=== PATIENT | female | born 1955 | race Caucasian/White ===

== ENCOUNTER → 2018-09-21 | Outpatient (CLI) | payer OTHER ==
[2018-09-21 07:40] LABS: POTASSIUM 4.1 mmol/L (3.5-5.1)
== END ==
LOC: M.LAB 04:34
PROVIDERS: Student in an Organized Health Care Education/Training Program
DX: Z01.812 Encounter for preprocedural laboratory examination (principal); E11.9 Type 2 diabetes mellitus without complications

== ENCOUNTER → 2020-08-25 | Outpatient (CLI) | payer OTHER | LOC: M.LAB 15:18 | PROVIDERS: ATTEND Podiatrist Foot Surgery | DX: Z20.828 Contact with and (suspected) exposure to other viral communicable diseases (principal) ==

== ENCOUNTER → 2020-08-28 | Outpatient (CLI) | payer OTHER ==
[2020-08-28 07:23] LABS: POTASSIUM 4.6 mmol/L (3.5-5.1)
== END ==
LOC: M.LAB 05:29
PROVIDERS: ATTEND Anesthesiology
DX: E87.6 Hypokalemia (principal); E11.9 Type 2 diabetes mellitus without complications

== ENCOUNTER → 2021-01-12 | Outpatient (CLI) | payer OTHER ==
[2021-01-12 15:58] LABS: POTASSIUM 4.8 mmol/L (3.5-5.1)
== END ==
LOC: M.LAB 15:16
PROVIDERS: ATTEND Podiatrist Foot Surgery
DX: Z01.812 Encounter for preprocedural laboratory examination (principal); Z20.822 Contact with and (suspected) exposure to COVID-19

== ENCOUNTER 2021-06-05 12:02 | Inpatient (IN) | payer OTHER, MEDICARE ==
[~2021-06-05] VITALS: Ht 167.6 cm; Wt 93.4 kg
--- NOTE | ~2021-06-05 | OP ---
[address] [address] OPERATIVE REPORT Name: CHEYENNE JAMIL Jana Room: [address] IN M.R.#: [id number] Admission: 06/05/21 Attend Phys: Donna Parker Discharge: 06/10/21 Date of : 53 Report #: [id number] THIS REPORT FOR: cc: YASIR JULIAN MD, CHADWICK MD Kuhn, James R. DPM ~ DATE OF SURGERY: 06/07/2021 PREOPERATIVE DIAGNOSES: 1. Cellulitis, left great toe. 2. Retained hardware. 3. Diabetic ulceration, left great toe. POSTOPERATIVE DIAGNOSES: 1. Cellulitis, left great toe. 2. Retained hardware. 3. Diabetic ulceration, left great toe. PROCEDURES: 1. Removal of hardware, left great toe. 2. Bone biopsy, left great toe. HEMOSTASIS: Ankle tourniquet. DESCRIPTION OF PROCEDURE: The patient was placed on the operating table in supine position. Pneumatic ankle tourniquet was placed around the left ankle. Anesthesia was obtained 1% lidocaine plain and 0.5% Marcaine plain 50:50 mixture around base of the first metatarsal, left foot. Left foot and ankle were prepped and draped in usual sterile manner. Limb was exsanguinated and pneumatic ankle tourniquet was inflated to 250 mmHg. Limb was table. Attention was directed to the left great toe where a linear incision was placed at tip of the left great toe, this was deepened to same plane using blunt and sharp dissection all bleeders were clamped and cauterized as necessary. A Trilliant screwdriver was then used to remove the screw in toto. The wound was copiously lavaged with sterile saline solution. A rongeur was then used to obtain bone, sent for pathology to help confirm osteomyelitis. The wound was then copiously lavaged with sterile saline again. Deep structures were reapproximated with use of 4-0 Vicryl horizontal mattress fashion. Skin was closed with use of 4-0 nylon in a simple interrupted fashion. Attention was then directed to the plantar ulcer which was sharply debrided. The wound was dressed with Adaptic gauze and [place] [address] OPERATIVE REPORT Name: CHEYENNE JAMIL Room: [address]#: [id number] Admission: 06/05/21 Attend Phys: Donna Parker Discharge: 06/10/21 Date of : 53 Report #: [id number] tourniquet was deflated and normal hyperemic noted to all digits of the left foot and patient was for IV antibiotics. By: 0601 0702Raad Gregorio, BIANCA /nt
--- NOTE | ~2021-06-05 | OP ---
[facility] [address] [place] [address] OPERATIVE REPORT Name: CHEYENNE JAMIL Jana Room: [address] IN .R.#: [id number] Admission: 06/05/21 Attend Phys: Donna Parker Discharge: 06/10/21 Date of : 53 Report #: [id number] THIS REPORT FOR: cc: YASIR JULIAN MD, CHADWICK MD Kuhn, James R. DPM ~ DATE OF SURGERY: 06/09/2021 SURGEON: Raad Gregorio DPM PREOPERATIVE DIAGNOSIS: Osteomyelitis of left great toe. POSTOPERATIVE DIAGNOSIS: Osteomyelitis of left great toe. PROCEDURE: Amputation of left great toe at MPJ. ANESTHESIA: IV sedation with local infiltration. HEMOSTASIS: Ankle tourniquet. PROCEDURE: The patient was placed on the operating table in supine position. Pneumatic ankle tourniquet was placed around the left ankle. Anesthesia was obtained using 1% lidocaine plain with 0.5% Marcaine plain infiltrated 50:50 mixture around the base of the first metatarsal. The left foot and ankle were prepped and draped in the usual sterile manner. Pneumatic ankle tourniquet was inflated to 250 mmHg ____ on the OR table. Attention was directed to the left great toe where 2 semi-elliptical incisions were placed in a manner to resect the digit completely at the MPJ as well as the ulceration completely. It was deepened in the same plane paying careful attention to all bleeders, which were clamped and cauterized as necessary, deepened to bone and soft tissue freed and retracted to the MPJ. It was disarticulated, MPJ removed completely and sent for pathology. The wound was then copiously lavaged with sterile saline solution. The area was inspected for any bleeders which were clamped and cauterized as necessary. Deep structures were reapproximated using 4-0 Vicryl in a horizontal mattress fashion, skin and subcutaneous tissue with 4-0 nylon in a simple interrupted fashion. The wound was dressed with Adaptic, dry gauze and Jessica. Pneumatic ankle tourniquet was deflated and normal hyperemic response noted to all digits of the left foot. By: 0604 [id number] Gregorio DPM /mahesh
[2021-06-05 12:26] VITALS: BP 154/72
[2021-06-05] MEDS ORDERED: TRAMADOL 50 MG50 MG PO (12:36)
[2021-06-05] MEDS ORDERED: GLIPIZIDE 10 MG10 MG PO (12:36)
[2021-06-05] MEDS ORDERED: LANTUS SUBQ (12:36)
[2021-06-05] MEDS ORDERED: METFORMIN HCL500 M3 PO (12:36)
[2021-06-05] MEDS ORDERED: TRIAMTERENE/HCT1 CA1 PO (12:36)
[2021-06-05] MEDS ORDERED: GRALISE600 MG PO (12:36)
[2021-06-05] MEDS ORDERED: BENICAR20 MG PO (12:36)
[2021-06-05] MEDS ORDERED: DICYCLOMINE HCL20 MG PO (12:37)
[2021-06-05] MEDS ORDERED: PRAVASTATIN SOD80 MG PO (12:37)
[2021-06-05] MEDS ORDERED: COLESTIPOL HCL1 G1 PO (12:37)
[2021-06-05] MEDS ORDERED: PROTONIX40 M2 PO (12:37)
[2021-06-05] MEDS ORDERED: ASA81BEC PO (12:37)
[2021-06-05 13:54] LABS: ABSOLUTE BASOPHILS 0.1 thou/uL (0.0-0.2); ABSOLUTE EOSINOPHILS 0.1 thou/uL (0.0-0.7); ABSOLUTE LYMPHOCYTES 2.6 thou/uL (0.8-5.3); ABSOLUTE MONOCYTES 0.7 thou/uL (0.0-1.2); ABSOLUTE NEUTROPHILS 3.6 thou/uL (1.6-8.1); EOSINOPHILS 1.9 %; HEMATOCRIT 36.5 % (37.0-47.0); HEMOGLOBIN 11.8 gm/dL (12.0-15.0); LYMPHOCYTES 36.7 %; MCH 28.5 pg (26.0-34.0); MCHC 32.4 g/dL (28.0-37.0); MCV 87.9 fL (80.0-100.0); MONOCYTES 9.5 %; MPV 6.7 fl. (7.2-11.1); NUCLEATED RBCS 0 /100WBC; PLATELET COUNT* 411 thou/uL (150-400); POLYS 50.9 %; RBC 4.15 mil/uL (4.20-5.00); RDW-CV 13.5 % (10.5-14.5); WBC 7.1 thou/uL (4.0-11.0)
[2021-06-05 14:00] LABS: CALCIUM 9.1 mg/dL (8.5-10.1); CREATININE 1.3 mg/dL (0.6-1.3); POTASSIUM 4.1 mmol/L (3.5-5.1)
[2021-06-05 14:04] LABS: ALBUMIN 3.3 g/dL (3.4-5.0); TOTAL BILIRUBIN 0.5 mg/dL (<0.1-1.0)
[2021-06-05 18:58] VITALS: BP 137/63
[2021-06-06 00:58] VITALS: BP 146/72
[2021-06-06 04:56] VITALS: BP 151/80
[2021-06-06 09:00] VITALS: BP 172/70
[2021-06-06 10:36] VITALS: BP 172/70
[2021-06-06 15:06] VITALS: BP 155/74
--- NOTE | 2021-06-06 15:25 | NUR ---
1105: PATIENT ADMITTED TO FLOOR FROM ED ACCOMPANIED BY ED NURSE AND SPOUSE. ADMITTED FOR INFECTED DIABETIC ULCER TO BIG LEFT TOE. RECEIVED REPORT FROM [facility] ED RN. CRYSTAL TAKEN OF ULCER AND DOCUMENTED IN HER CHART. IV TO LEFT FOREARM INFUSING NORMAL SALINE AT 100ML/HR WITHOUT COMPLICATIONS. ULCER WITH SMALL PURULENT DRAINAGE. SITE COVERED WITH 2X2 GAUZE AND WRAPPED WITH KEFLIX SECURED WITH HYPAFIX. NO C/O PAIN. ORIENTED TO ROOM AND FLOOR. ALL QUESTIONS AND CONCERNS ADDRESSED.
--- NOTE | 2021-06-06 17:54 | NUR ---
PATIENT RESTING IN BED, EATING DINNER. AT BEDSIDE, [id number] WITH CARES. BLOOD SUGARS MONITORED THROUGHT SHIFT. NO INSULIN GIVEN. DRESSING TO LEFT BIG TOE, C/D/I. IV TO LEFT FOREARM WITH NORMAL SALINE INFUSING AT 100ML/HR. NO C/O PAIN/DISCOMFORT. BED IN LOW/LOCKED POSITION. CALL LIGHT WITHIN REACH. ALL QUESTIONS AND CONERNS ADDRESSED.
[2021-06-06 19:24] VITALS: BP 156/65
[2021-06-07 00:43] VITALS: BP 188/66
[2021-06-07 04:06] VITALS: BP 188/68
--- NOTE | 2021-06-07 04:28 | NUR ---
PATIENT SLEPT WELL DURING THIS SHIFT. PT WITH FLUIDS INFUSING PER DR PINEDA. PT IS ON ROOM AIR, UP AD CINDY TO BATHROOM AND HAS BEEN NPO SINCE MIDNIGHT. PT WITH BLOOD PRESSURE AT MIDNIGHT AND 0400 IN 180'S/60'S. YOUCALLMD SENT TO DR MARIE FOR ORDER. WAITING FOR RESPONSE AT THIS TIME. PT DENIES PAIN/NAUSEA AT THIS TIME. FREQUENTLY USED ITEMS AND CALL LIGHT WITHIN REACH. SIDERAILS UPX2. WILL CONTINUE TO MONITOR
[2021-06-07 08:00] VITALS: BP 147/86
--- NOTE | 2021-06-07 11:06 | NUR ---
0850: PATIENT TRANSFERED TO PRE-OP VIA HOSPITAL BED ACCOMPANIED BY NURSE AND . 1100: PATIENT RETURNED TO FLOOR AT THIS TIME VIA HOSPITAL BED ACCOMPANIED BY PACU NURSES AND . RESTING IN BED. NO C/O PAIN/DISCOMFORT. DRESSING TO LEFT BIG TOE, C/D/I. WILL CONTINUE TO MONITOR.
[2021-06-07 12:30] VITALS: BP 158/77
--- NOTE | 2021-06-07 18:05 | NUR ---
PATIENT RESTING IN BED. I&D TO LEFT BIG TOE TODAY, DRESSING C/D/I. C/O OF PAIN. FOOT ELEVATED ON TWO PILLOWS. TRAMADOL X1 GIVEN. BLOOD SUGARS MONITORED. METFORMIN GIVEN ORDERED. IV TO RIGHT WRIST INFUSING NORMAL SALINE AT 100. BED IN LOW/LOCKED POSITION. CALL LIGHT WITHIN REACH. STAND BY ASSIST. ALL QUESTIONS AND CONCERNS ADDRESSED.
[2021-06-07 18:25] VITALS: BP 122/68
[2021-06-08] VITALS: BP 143/71
[2021-06-08 04:00] VITALS: BP 142/67
--- NOTE | 2021-06-08 04:46 | NUR ---
PATIENT SLEPT WELL DURING THIS SHIFT. PT REQUESTED TRAMADOL X1 AT HS FOR FOOT PAIN. DSG ON LT FOOT C/D/I; ELEVATED ON PILLOW. FLUIDS/ANTIBIOTICS INFUSING PER DR ORDER. PT UP AD CINDY TO BSC. PT SR ON PHOTOGRAPHER SCIENTIFIC. DENIES NEEDS AT THIS TIME. FREQUENTLY USED ITEMS AND CALL LIGHT WITHIN REACH. SIDERAILS UPX2. WILL CONTINUE TO MONITOR.
[2021-06-08 08:00] VITALS: BP 150/62
[2021-06-08 12:00] VITALS: BP 157/73
--- NOTE | 2021-06-08 12:56 | NUR ---
Pt is A&O. Resides at home with . Independent. Pt has a cane that she uses PRN. No home o2. No hx of HH or SNF. Goal is home at dc, Pt does not anticipate any dc needs. Lissa yesterday, ?need for second surgery. Anticipate dc in 1-2 days. Following.
[2021-06-08] MEDS ORDERED: CEFDINIR300 MG PO (13:22)
[2021-06-08 16:00] VITALS: BP 161/66
--- NOTE | 2021-06-08 18:59 | NUR ---
PATIENT RESTING IN BED, WATCHING TV. ALERT AND ORIENTED X4. BLOOD SUGARS MONITORED. METFORMIN GIVEN NEEDED. DRESSING TO LEFT FOOT/BIG TOE, C/D/I. BED IN LOW/LOCKED POSITION. CALL LIGHT WITHIN REACH. ALL QUESTIONS AND CONCERNS ADDRESSED.
[2021-06-08 22:04] VITALS: BP 179/79
[2021-06-09] VITALS: BP 172/70
[2021-06-09 04:00] VITALS: BP 183/81
--- NOTE | 2021-06-09 07:46 | NUR ---
PT IS ABLE TO COMMUNICATE HER NEEDS TO STAFF EFFECTIVELY. SHE HAS DENIED THE NEED FOR PAIN MEDICATION UP TO 0630 THIS MORNING. SHE HAS BEEN NPO SINCE MIDNIGHT FOR SURGERY THIS MORNING. SURGERY RN CAME TO TAKE PT DOWN AT 0630 THIS MORNING. PT'S BP ELEVATED LAST NIGHT; PAGED, ORDERS RECEIVED AND IMPLEMENTED.
[2021-06-09 12:00] VITALS: BP 184/75
--- NOTE | 2021-06-09 14:50 | NUR ---
Anticipate dc to home today post toe amputation.
--- NOTE | 2021-06-09 15:51 | EKG ---
[place] [address] ELECTROCARDIOGRAM REPORT Name: CHEYENNE JAMIL Room: [address] ADM IN .R.#: [id number] Admission: 06/05/21 Attend Phys: Liborio Aaron Discharge: Date of : 53 Date of Service: 06/09/2128 Report #: [id number] THIS REPORT FOR: //name// [facility] Test Date: 2021-06-09 Test Time: 07:28:54 Pat Name: CHEYENNE JAMIL Department: Room: [address] Gender: F Water Systems Engineer: JACK : 1955 Requested By: Yesenia Mcneill Order Number: [id number] Doron MD: Mao Short Measurements Intervals [place] Rate: 84 P: 63 ME: 162 QRS: 8 QRSD: 92 T: 11 QT: 358 QTc: 424 Interpretive Statements Sinus rhythm No previous ECG available for comparison Electronically Signed On 06-09-2021 15:51:37 CDT by Mao Short [email or web address] <ELECTRONICALLY SIGNED> By: Mao Short MD, [facility] 06/09/21 1551 7 7 Mao Short MD, [facility] /EPI
[2021-06-09 16:00] VITALS: BP 157/73
--- NOTE | 2021-06-09 17:38 | NUR ---
PATIENT HAS REMAINED A&OX4, PLEASANT AND COOPERATIVE WITH CARES THIS SHIFT. PATIENT ARRIVED TO UNIT AT APPROX. 0925 AFTER HAVING LEFT GREAT TOE AMPUTATED. PATINT HAS DENIED ANY PAIN; MEDICATIONS ADMINISTERED ORDERED. PATIENT NOW HEEL WEIGHT BEARING ON LEFT FOOT AND IS UP WITH ONE ASSIST. CALL LIGHT AND FREQUENTLY USED ITEMS WITHIN REACH.
--- NOTE | 2021-06-09 19:10 | NUR ---
PER DR. CHUA REQUEST, THIS NURSE CONTACTED AND LEFT MESSAGE FOR DR. HUGHES AT [phone] AT APPROX. [address] HUGHES'S CONVERSATION WITH PATIENT/ IN REGARDS TO PATIENT STAYING OVERNIGHT. WHEN THIS NURSE MENTIONED DISCHARGE EARLIER IN THE SHIFT, PATIENT STATED THAT SHE ASKED DR. HUGHES IF SHE MAY STAY TONIGHT "IN CASE SOMETHING WERE TO HAPPEN" AND HE SAID "THAT WAS FINE" AND SHE "COULD LEAVE TOMORROW". OF THE WRITING OF THIS NOTE, NO RETURN CALL HAS BEEN MADE. WILL [facility] SHIFT NURSE.
--- NOTE | 2021-06-09 19:38 | NUR ---
APPROX. 1916, DR. HUGHES CONTACTED THIS NURSE BACK. HE REPORTS THAT HE INFORMED PATIENT THAT HE TYPICALLY DISCHARGES PATIENTS AFTER THIS TYPE OF SURGERY AND WHEN PATIENT REQUESTED TO STAY OVERNIGHT, HE TOLD HER THAT HE "DIDN'T HAVE A PROBLEM WITH HER DISCHARGING IN THE A.M." THIS NURSE SENT DR. CHUA A [employer] MESSAGE TO INFORM THAT THIS NURSE DID SPEAK WITH DR. HUGHES.
[2021-06-09 20:30] VITALS: BP 138/62
[2021-06-09 23:59] VITALS: BP 152/71
[2021-06-10 04:25] VITALS: BP 137/69
--- NOTE | 2021-06-10 06:22 | NUR ---
PT STATES SHE SLEPT WELL WITHOUT COMPLAINTS. HS ACCUCHECK 312, INSULIN GIVEN ORDERED WITH SNACK. PT UP TO BSC TO VOID WITH ASSIST, HEEL WEIGHT BEARING ONLY TO L FOOT. TELE SR. PATSYG CDI TO L FOOT. R HAND IV ABX INFUSING ORDERED. HOPEFUL FOR DISCHARGE HOME TODAY. ABLE TO USE CALL LITE AND MAKE NEEDS KNOWN.
[2021-06-10 08:02] VITALS: BP 162/77
[2021-06-10 11:23] VITALS: BP 165/79
[2021-06-10 14:05] VITALS: BP 165/79
[2021-06-10 14:33] VITALS: BP 165/79
--- NOTE | 2021-06-10 14:34 | NUR ---
PATIENT GIVEN DISCHARGE INSTRUCTIONS WELL PRESCRIPTION FOR CEFDINIR AND INFORMATION SHEETS FOR NEW PRESCRIPTION. IV REMOVED. PATIENT DENIED PAIN/QUESTIONS/CONCERNS PRIOR TO DISCHARGE. PATIENT LEFT UNIT WITH PERSONAL BELONGINGS VIA W/C, ACCOMPANIED BY NURSING STAFF AT APPROX. 1425 TO MEET AT MAIN ENTRANCE.
--- NOTE | 2021-06-11 14:07 | PATH ---
[address] [address] PATHOLOGY RPT PROCEDURE Name: CHEYENNE JAMIL Room: [address] IN [facility]#: [id number] Admission: 06/05/21 Date of : 53 Discharge: 06/10/21 Report #: [id number] Path Case #: [id number] LCA Accession Number: [id number] . 01 Material submitted: . PART A: hallux - LEFT GREAT TOE. Modifiers: left PART B: hallux - BONE LEFT GREAT TOE. Modifiers: left . 01 Clinical history: . FOR A- AMPUTATION OF TOES; OSTEOMYELITIS, LEFT GREAT TOE DIABETIC FOOT WOUND, LEFT FOOT CELLULITIS . FOR B- INCISION AND DRAINAGE EXTREMITY WITH IRRIGATION; INFECTION . 02 Diagnosis: A. Left great toe: - Benign toe with nonspecific ulceration of plantar surface and prominent osteomyelitis of phalangeal bones, with proximal disarticulation margin free of osteomyelitis. . B. Bone left great toe: - Osteomyelitis, negative for malignancy. . (YOVANY:santos; 06/10/2021) MBR 06/10/2021 1648 Local . 02 Electronically signed: . Joel Kurtz MD, Pathologist NPI- [id number] . 01 Gross description: . A. The specimen is received in formalin, labeled "Cheyenne Jamil, left great toe". It consists of a distal toe segment measuring 5.5 cm long ranging in diameter from 2.0-3.3 cm in greatest dimension. The skin and soft tissue at the resection surface (inked black) appears grossly viable. Extending from the resection surface is a bony segment displaying a smooth articular surface. Identified at the distal tip is an erythematous, focally sutured wound measuring 1.5 x 0.6 cm. Identified on the plantar aspect is a monte-asif, erythematous, centrally ulcerated wound measuring 1.2 x 1.0 cm. The remaining epidermal surface appears monte, wrinkled and hairbearing with focal sloughing. A monte unremarkable toenail is present. A specialty sales representative longitudinal section is submitted from distal to proximal in A1-A4 (A2-A4 submitted following decalcification). . B. The specimen is received in formalin, labeled "Cheyenne Jamil, bone left great toe". It consists of 2 monte-white, irregular firm bony tissue fragments measuring 0.3 and 0.6 cm. The specimen is entirely submitted between sponges in B1 [place] [address] PATHOLOGY RPT PROCEDURE Name: CHEYENNE JAMIL Jana Room: [address] DIS IN M..#: [id number] Admission: 06/05/21 Date of : 53 Discharge: 06/10/21 Report #: [id number] Path Case #: [id number] (MRF; 06/09/2021) MFE/MFE 06/10/[address] [place] [address] . 02 Pathologist provided ICD-10: M86.8X7, L97.529 . 02 CPT . 613888, 446045, 273530, 410830 Specimen Comment: A courtesy copy of this report has been sent to [phone], [phone] Specimen Comment: [phone], Specimen Comment: Report sent to , DR AVILES / DR JULIAN Performed at: 01 [facility] [address], [place], [place] [id number] MD Efrain Berry MD Phone: [phone] Performed at: [address] [facility] [place] [address], [place], [place] [id number] MD Joel Kurtz MD Phone: [phone]
== END 2021-06-10 14:25 | disposition home or self-care (01) | DRG 617 ==
LOC: M.ERS 12:02 → M.TBA-ER 14:58 → M.2W 14:58
PROVIDERS: Physician Assistant; ADMIT Internal Medicine; ATTEND Internal Medicine
DX: E11.69 Type 2 diabetes mellitus with other specified complication (principal); L03.116 Cellulitis of left lower limb; M86.8X7 Other osteomyelitis, ankle and foot; E11.22 Type 2 diabetes mellitus with diabetic chronic kidney disease; I12.9 Hypertensive chronic kidney disease with stage 1 through stage 4 chronic kidney disease, or unspecified chronic kidney disease; N18.30 Chronic kidney disease, stage 3 unspecified; E11.621 Type 2 diabetes mellitus with foot ulcer; L97.529 Non-pressure chronic ulcer of other part of left foot with unspecified severity; K21.9 Gastro-esophageal reflux disease without esophagitis; K58.9 Irritable bowel syndrome, unspecified; E11.40 Type 2 diabetes mellitus with diabetic neuropathy, unspecified; Z20.822 Contact with and (suspected) exposure to COVID-19; Z88.8 Allergy status to other drugs, medicaments and biological substances; Z79.4 Long term (current) use of insulin; Z79.82 Long term (current) use of aspirin; Z79.899 Other long term (current) drug therapy